=== PATIENT | female | born 1985 | race Caucasian/White ===

== ENCOUNTER 2016-11-08 07:49 | Emergency (ER) | payer OTHER ==
--- NOTE | 2016-11-08 11:29 | DIAGNOSTIC IMAGING REPORT ---
PROCEDURE: CT ABDOMEN/PELVIS W/O CONTRAST INDICATION: Left flank pain. Reported prior appendectomy, section, and tubal ligation. TECHNIQUE: Noncontrast axial images with sagittal and coronal reformations. COMPARISON: Compared to pelvic ultrasound 05/05/2016. FINDINGS: ABDOMEN: There is a 0.5 mm nonobstructing calculus in the lower left kidney. Left kidney and ureter are otherwise normal. Right kidney and ureter are normal. Gallbladder, liver, spleen, pancreas, and aorta are normal. Bowel pattern is normal, there are surgical clips in the right lower abdomen. PELVIS: There is a tubal ligation clips in the right pelvis. Uterus and adnexal structures are otherwise normal. No evidence of free fluid. IMPRESSION: 1. There is a 0.5 mm nonobstructing calculus in the left kidney. 2. No evidence of urinary tract obstruction. 3. Postoperative changes consistent with cholecystectomy and tubal ligation. 4. Findings discussed with Dr. Estevan Loving. All CT scans at this facility use dose modulation, iterative reconstruction, and/or weight-based dosing when appropriate to reduce radiation dose to as low as reasonably achievable.
--- NOTE | 2016-11-08 11:47 | ED ORDER SUMMARY ---
..... Patient: SCARLETT AGUILAR OrderSheet [facility] VisitID: [id number] [place] [address] 31y, F Registration Date/Time: 11/08/2016 ORDER SHEET Weight: 86.1 kg (stated) Allergies: Benadryl, Ibuprofen, morphine, Nitroglycerin, Reglan GENERAL ORDERS: UA-Culture if indicated Urgent (08:44 11/08/2016 Yovana GARCIA) (Ack 8:45 Landy) (8:48 JSanders R.N.) Urine Urgent (08:44 11/08/2016 Yovana GARCIA) (Ack 8:45 Landy) (8:48 JSanders R.N.) CT Abd/Pel wo Cont Urgent (10:04 11/08/2016 Madan Morris) (Ack 10:12 Landy) (10:55 JSanders R.N.) CBC w Diff Urgent (10:05 11/08/2016 Madan Morris) (Ack 10:12 DONISoejonathon) (11:08 JSanders R.N.) CMP Urgent (10:05 11/08/2016 Madan Morris) (Ack 10:12 Landy) (11:08 JSanders R.N.) Lipase Urgent (10:05 11/08/2016 Madan Morris) (Ack 10:12 Landy) (11:08 JSanders R.N.) MEDICATION ORDERS: Toradol IM 30 mg (NOW) (08:19 11/08/2016 Yovana GARCIA) (8:25 JSanders R.N.) Percocet PO 5/325 mg (HIGH ALERT MEDICATION, NOW) (09:26 11/08/2016 Madan Morris) (9:41 JSanders R.N.) IV FLUIDS: IV NS : initial bolus 1000 mL (1000 mL/hr), then none - for X1 (NOW) (10:04 11/08/2016 Madan Morris) (10:36 JSanders R.N.) Morphine IV 4 mg (HIGH ALERT MEDICATION, NOW) (10:39 11/08/2016 Madan Morris) (Cancelled: Duplicate Order11:10 Madan Morris) Dilaudid IV 1 mg (HIGH ALERT MEDICATION, NOW) (11:09 11/08/2016 Madan Morris) (11:32 Cedrick Jimenez) ORDER SHEET NOTES: [Electronically signed by Marlen Herrera R.N. (12:15 11/08/2016)] [Electronically signed by Estevan Loving Dr. (11:52 11/10/2016)] [Electronically locked/signed by Marlen Herrera R.N. (12:15 11/08/2016)]
--- NOTE | 2016-11-08 11:47 | ED ORDER SUMMARY ---
..... Patient: SCARLETT AGUILAR OrderSheet [facility] VisitID: [id number] [place] [address] 31y, F Registration Date/Time: 11/08/2016 ORDER SHEET Weight: 86.1 kg (stated) Allergies: Benadryl, Ibuprofen, morphine, Nitroglycerin, Reglan GENERAL ORDERS: UA-Culture if indicated Urgent (08:44 11/08/2016 Yovana GARCIA) (Ack 8:45 Landy) (8:48 JSanders R.N.) Urine Urgent (08:44 11/08/2016 Yovana GARCIA) (Ack 8:45 Landy) (8:48 JSanders R.N.) CT Abd/Pel wo Cont Urgent (10:04 11/08/2016 Madan Morris) (Ack 10:12 Landy) (10:55 JSanders R.N.) CBC w Diff Urgent (10:05 11/08/2016 Madan Morris) (Ack 10:12 DONISoejonathon) (11:08 JSanders R.N.) CMP Urgent (10:05 11/08/2016 Madan Morris) (Ack 10:12 Landy) (11:08 JSanders R.N.) Lipase Urgent (10:05 11/08/2016 Madan Morris) (Ack 10:12 Landy) (11:08 JSanders R.N.) MEDICATION ORDERS: Toradol IM 30 mg (NOW) (08:19 11/08/2016 Yovana GARCIA) (8:25 JSanders R.N.) Percocet PO 5/325 mg (HIGH ALERT MEDICATION, NOW) (09:26 11/08/2016 Madan Morris) (9:41 JSanders R.N.) IV FLUIDS: IV NS : initial bolus 1000 mL (1000 mL/hr), then none - for X1 (NOW) (10:04 11/08/2016 Madan Morris) (10:36 JSanders R.N.) Morphine IV 4 mg (HIGH ALERT MEDICATION, NOW) (10:39 11/08/2016 Madan Morris) (Cancelled: Duplicate Order11:10 Madan Morris) Dilaudid IV 1 mg (HIGH ALERT MEDICATION, NOW) (11:09 11/08/2016 Madan Morris) (11:32 Cedrick Jimenez) ORDER SHEET NOTES: [Electronically signed by Marlen Herrera R.N. (12:15 11/08/2016)] [Electronically signed by Estevan Loving Dr. (11:52 11/10/2016)] [Electronically locked/signed by Marlen Herrera R.N. (12:15 11/08/2016)]
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
--- NOTE | 2016-11-10 11:52 | ED MAR SUMMARY ---
..... Medication Administration Record [facility] [address] [place] [address] Patient: SCARLETT AGUILAR Visit ID: [id number] 31y, F Weight: 86.1 kg Height/Length: 62 in BMI: 34.8 ALLERGIES: Benadryl, Ibuprofen, morphine, Nitroglycerin, Reglan Given 08:25 11/08/2016 Marlen Herrera R.N. Medication Administered: TORADOL [IM] (KETOROLAC TROMETHAMINE), Dose: 30 mg IM. Medication Ordered: Toradol IM 30 mg (NOW). Given 09:41 11/08/2016 Marlen Herrera R.N. Medication Administered: PERCOCET [PO] (OXYCODONE-ACETAMINOPHEN), Dose: 1 tab 5/325 mg Tablets PO. Medication Ordered: Percocet PO 5/325 mg (HIGH ALERT MEDICATION, NOW). Start 10:36 11/08/2016 Marlen Herrera R.N., Stop 11:32 11/08/2016 Marlen Herrera R.N. Medication Administered: IV NS (SALINE), Dose: IV Fluids over 1 hour(s), Rate: 1000 mL/hr, Bolus: 1000 mL over 1 hour(s), Dispensed: 1000 mL bag, Site: #1 left AC. Medication Ordered: IV NS : initial bolus 1000 mL (1000 mL/hr), then none - for X1 (NOW). Given 11:32 11/08/2016 Marlen Herrera R.N. Medication Administered: DILAUDID [IVP] (HYDROMORPHONE HCL PF), Dose: 1 mg IVP over 2 minute(s), Site: #1 left AC. Medication Ordered: Dilaudid IV 1 mg (HIGH ALERT MEDICATION, NOW).
--- NOTE | 2016-11-10 11:52 | ED MED RECONCILIATION SUMMARY ---
Patient: SCARLETT AGUILAR Medication Reconciliation Report [facility] VisitID: [id number] [address] [place] [address] 31y, F Registration Date/Time: 11/08/2016 Weight: 86.1 kg Height/Length: 62 in. BMI: 34.8 ALLERGIES: Benadryl, Ibuprofen, morphine, Nitroglycerin, Reglan The patient's Home Medications are listed below: NONE. The source(s) of the original Home Medication information: Not obtained. The following Medications were given to the patient in the Emergency Department: Toradol [IM] IM 30 mg, administered: 11/08/2016 8:25:00 AM Percocet [PO] PO 1 tab, administered: 11/08/2016 9:41:00 AM IV NS IV Fluids bolus 1000 mL over 1 hour(s), then 1000 mL/hr, administered: 11/08/2016 10:36:00 AM Dilaudid [IVP] IVP 1 mg, administered: 11/08/2016 11:32:00 AM The following Medications were prescribed to the patient: Zofran (orally disintegrating tablets) 4 mg: take 1 orally every 8 hours as needed for nausea and vomiting. Dispense ten (10). No refill. Substitution is permissible. -- Estevan Loving Dr. Cephalexin 500 mg: take 1 capsule orally every 8 hours for 5 days. No refill. -- Estevan Loving Dr. Percocet 5 mg/325 mg: take 1 tablet orally every 6 hours as needed for pain. Dispense twelve (12). No refill. Substitution is permissible. -- Estevan Loving Dr.
--- NOTE | 2016-11-10 11:52 | ED MAR SUMMARY ---
..... Medication Administration Record [facility] [address] [place] [address] Patient: SCARLETT AGUILAR Visit ID: [id number] 31y, F Weight: 86.1 kg Height/Length: 62 in BMI: 34.8 ALLERGIES: Benadryl, Ibuprofen, morphine, Nitroglycerin, Reglan Given 08:25 11/08/2016 Marlen Herrera R.N. Medication Administered: TORADOL [IM] (KETOROLAC TROMETHAMINE), Dose: 30 mg IM. Medication Ordered: Toradol IM 30 mg (NOW). Given 09:41 11/08/2016 Marlen Herrera R.N. Medication Administered: PERCOCET [PO] (OXYCODONE-ACETAMINOPHEN), Dose: 1 tab 5/325 mg Tablets PO. Medication Ordered: Percocet PO 5/325 mg (HIGH ALERT MEDICATION, NOW). Start 10:36 11/08/2016 Marlen Herrera R.N., Stop 11:32 11/08/2016 Marlen Herrera R.N. Medication Administered: IV NS (SALINE), Dose: IV Fluids over 1 hour(s), Rate: 1000 mL/hr, Bolus: 1000 mL over 1 hour(s), Dispensed: 1000 mL bag, Site: #1 left AC. Medication Ordered: IV NS : initial bolus 1000 mL (1000 mL/hr), then none - for X1 (NOW). Given 11:32 11/08/2016 Marlen Herrera R.N. Medication Administered: DILAUDID [IVP] (HYDROMORPHONE HCL PF), Dose: 1 mg IVP over 2 minute(s), Site: #1 left AC. Medication Ordered: Dilaudid IV 1 mg (HIGH ALERT MEDICATION, NOW).
--- NOTE | 2016-11-10 11:52 | ED DISCHARGE INSTRUCTIONS ---
Patient: SCARLETT AGUILAR General Instructions [facility] VisitID: [id number] [place] [address] 31y, F Registration Date/Time: 11/08/2016 11/08/2016 07:57 BP: 112/73. HR: 80. RR: 18. O2 saturation: 100%. Temp: 98 F. Pain level now: 9/10. Blood pressure normal. Oxygen saturation normal. Left nephrolithiasis (acute). Acute lumbar back pain. (left). INSTRUCTIONS Warnings: GENERAL WARNINGS: Return or contact your physician immediately if your condition worsens or changes unexpectedly, if not improving as expected, or if other problems arise. SPECIFICALLY, return if you develop weakness, numbness, tingling, pain or incontinence. fever or other concerns. Your Current Medications: CONTINUE TAKING THE FOLLOWING MEDICATIONS: None*. Prescription Medications: Zofran (orally disintegrating tablets) 4 mg: take 1 orally every 8 hours as needed for nausea and vomiting. Dispense ten (10). No refill. Substitution is permissible. Cephalexin 500 mg: take 1 capsule orally every 8 hours for 5 days. No refill. Percocet 5 mg/325 mg: take 1 tablet orally every 6 hours as needed for pain. Dispense twelve (12). No refill. Substitution is permissible. Follow-up: Return to the emergency department as needed. Follow up with your doctor in three days. Reason for referral: recheck today's concerns. Summary of care provided to patient via paper. Screening today revealed the patient's blood pressure to be in the normal range. The patient should follow up with a primary care provider for blood pressure management. Understanding of the discharge instructions verbalized by patient. ADDITIONAL INFORMATION Back Pain [Acute Or Chronic] Back pain is usually caused by an injury to the muscles or ligaments of the spine. Sometimes the disks that separate each bone in the spine may bulge and cause pain by pressing on a nearby nerve. Back pain may also appear after a sudden twisting/bending force (such as in a car accident), after a simple awkward movement, or lifting something heavy with poor body positioning. In either case, muscle spasm is often present and adds to the pain. Acute back pain usually gets better in one to two weeks. Back pain related to disk disease, arthritis in the spinal joints or spinal stenosis (narrowing of the spinal canal) can become chronic and last for months or years. Unless you had a physical injury (for example, a car accident or fall) X-rays are usually not ordered for the initial evaluation of back pain. If pain continues and does not respond to medical treatment, x-rays and other tests may be performed at a later time. Home Care: You may need to stay in bed the first few days. But, as soon as possible, begin sitting or walking to avoid problems with prolonged bed rest (muscle weakness, worsening back stiffness and pain, blood clots in the legs). When in bed, try to find a position of comfort. A firm mattress is best. Try lying flat on your back with pillows under your knees. You can also try lying on your side with your knees bent up towards your chest and a pillow between your knees. Avoid prolonged sitting. This puts more stress on the lower back than standing or walking. During the first two days after injury, apply an ICE PACK to the painful area for 20 minutes every 2-4 hours. This will reduce swelling and pain. HEAT (hot shower, hot bath or heating pad) works well for muscle spasm. You can start with ice, then switch to heat after two days. Some patients feel best alternating ice and heat treatments. Use the one method that feels the best to you. You may use acetaminophen (Tylenol) or ibuprofen (Motrin, Advil) to control pain, unless another pain medicine was prescribed. [NOTE: If you have chronic liver or kidney disease or ever had a stomach ulcer or GI bleeding, talk with your doctor before using these medicines.] Be aware of safe lifting methods and do not lift anything over 15 pounds until all the pain is gone. Follow Up with your doctor or this facility if your symptoms do not start to improve after one week. Physical therapy may be needed. [NOTE: If X-rays were taken, they will be reviewed by a radiologist. You will be notified of any new findings that may affect your care.] Get Prompt Medical Attention if any of the following occur: Pain becomes worse or spreads to your legs Weakness or numbness in one or both legs Loss of bowel or bladder control Numbness in the groin or genital area Kidney Stone (W/ Colic) The sharp cramping pain and nausea/vomiting that you have is due to a small stone which has formed in the kidney and is now passing down a narrow tube (ureter) on its way to your bladder. Once it reaches your bladder, the pain will stop. The stone may pass in your urine stream in one piece. [The size may be 1/16" to 1/4" (1-6mm)]. Or, the stone may also break up into floyd fragments which you may not even notice. Once you have had a kidney stone, you are at risk for developing another one in the future. Home Care: Drink plenty of fluids (at least 8 to 10 glasses of water a day). Most stones will pass on their own, but may take from a few hours to a few days. Sometimes the stone is too large to pass by itself and special methods will have to be used to remove the stone. Each time you urinate, do so in a jar. Pour the urine from the jar through the strainer and into the toilet. Continue doing this until 24 hours after your pain stops. By then, if there was a kidney stone, it should pass from your bladder. Some stones dissolve into sand-like particles and pass right through the strainer. In that case, you wont ever see a stone. Save any stone that you find in the strainer and bring it to your doctor for analysis. It may be possible to prevent certain types of stones from forming. Therefore, it is important to know what kind of stone you have. Try to stay as active as possible since this will help the stone pass. Do not stay in bed unless your pain prevents you from getting up. You may notice a red, pink or brown color to your urine. This is normal while passing a kidney stone. Follow Up with your doctor or return to this facility if the pain lasts more than 48 hours. Get Prompt Medical Attention if any of the following occur: Pain that is not controlled by the medicine given Repeated vomiting or unable to keep down fluids Weakness, dizziness or fainting Fever of 100.4F (38C) or higher, or as directed by your healthcare provider Passage of solid red or brown urine (can't see through it) or urine with lots of blood clots Unable to pass urine for 8 hours and increasing bladder pressure Ondansetron Oral disintegrating tablet What is this medicine? ONDANSETRON (on NAVEED se anne) is used to treat nausea and vomiting caused by chemotherapy. It is also used to prevent or treat nausea and vomiting after surgery. How should I use this medicine? These tablets are made to dissolve in the mouth. Do not try to push the tablet through the foil backing. With dry hands, peel away the foil backing and gently remove the tablet. Place the tablet in the mouth and allow it to dissolve, then swallow. While you may take these tablets with water, it is not necessary to do so. Talk to your carcass washer regarding the use of this medicine in children. Special care may be needed. What side effects may I notice from receiving this medicine? Side effects that you should report to your doctor or health customer care voice consultant as soon as possible: allergic reactions like skin rash, itching or hives, swelling of the face, lips, or tongue breathing problems dizziness fast or irregular heartbeat feeling faint or lightheaded, falls fever and chills swelling of the hands and feet tightness in the chest Side effects that usually do not require medical attention (report to your doctor or health customer care voice consultant if they continue or are bothersome): constipation or diarrhea headache What may interact with this medicine? Do not take this medicine with any of the following medications: -apomorphine -cisapride -dofetilide -dronedarone -pimozide -thioridazine -ziprasidone This medicine may also interact with the following medications: -carbamazepine -phenytoin -rifampicin -tramadol -other medicines that prolong the QT interval (cause an abnormal heart rhythm) What if I miss a dose? If you miss a dose, take it as soon as you can. If it is almost time for your next dose, take only that dose. Do not take double or extra doses. Where should I keep my medicine? Keep out of the reach of children. Store between 2 and 30 degrees C (36 and 86 degrees F). Throw away any unused medicine after the expiration date. What should I tell my health care provider before I take this medicine? They need to know if you have any of these conditions: heart disease history of irregular heartbeat liver disease low levels of magnesium or potassium in the blood an unusual or allergic reaction to ondansetron, granisetron, other medicines, foods, dyes, or preservatives or trying to get breast-feeding What should I watch for while using this medicine? Check with your doctor or health customer care voice consultant as soon as you can if you have any sign of an allergic reaction. Cephalexin Monohydrate Oral tablet What is this medicine? CEPHALEXIN (sef a PAULO in) is a cephalosporin antibiotic. It is used to treat certain kinds of bacterial infections It will not work for colds, flu, or other viral infections. How should I use this medicine? Take this medicine by mouth with a full glass of water. Follow the directions on the prescription label. This medicine can be taken with or without food. Take your medicine at regular intervals. Do not take your medicine more often than directed. Take all of your medicine as directed even if you think you are better. Do not skip doses or stop your medicine early. Talk to your carcass washer regarding the use of this medicine in children. While this drug may be prescribed for selected conditions, precautions do apply. What side effects may I notice from receiving this medicine? Side effects that you should report to your doctor or health customer care voice consultant as soon as possible: allergic reactions like skin rash, itching or hives, swelling of the face, lips, or tongue breathing problems pain or trouble passing urine redness, blistering, peeling or loosening of the skin, including inside the mouth severe or watery diarrhea unusually weak or tired yellowing of the eyes, skin Side effects that usually do not require medical attention (report to your doctor or health customer care voice consultant if they continue or are bothersome): gas or heartburn genital or anal irritation headache joint or muscle pain nausea, vomiting What may interact with this medicine? probenecid some other antibiotics What if I miss a dose? If you miss a dose, take it as soon as you can. If it is almost time for your next dose, take only that dose. Do not take double or extra doses. There should be at least 4 to 6 hours between doses. Where should I keep my medicine? Keep out of the reach of children. Store at room temperature between 59 and 86 degrees F (15 and 30 degrees C). Throw away any unused medicine after the expiration date. What should I tell my health care provider before I take this medicine? They need to know if you have any of these conditions: kidney disease stomach or intestine problems, especially colitis an unusual or allergic reaction to cephalexin, other cephalosporins, penicillins, other antibiotics, medicines, foods, dyes or preservatives or trying to get breast-feeding What should I watch for while using this medicine? Tell your doctor or health customer care voice consultant if your symptoms do not begin to improve in a few days. Do not treat diarrhea with over the counter products. Contact your doctor if you have diarrhea that lasts more than 2 days or if it is severe and watery. If you have diabetes, you may get a false-positive result for sugar in your urine. Check with your doctor or health customer care voice consultant. Oxycodone Hydrochloride, Acetaminophen Oral tablet What is this medicine? ACETAMINOPHEN; OXYCODONE (a set a FREDI devyn fen; ox i KOE done) is a pain reliever. It is used to treat mild to moderate pain. How should I use this medicine? Take this medicine by mouth with a full glass of water. Follow the directions on the prescription label. Take your medicine at regular intervals. Do not take your medicine more often than directed. Talk to your carcass washer regarding the use of this medicine in children. Special care may be needed. Patients over 65 years old may have a stronger reaction and need a smaller dose. What side effects may I notice from receiving this medicine? Side effects that you should report to your doctor or health customer care voice consultant as soon as possible: allergic reactions like skin rash, itching or hives, swelling of the face, lips, or tongue breathing difficulties, wheezing confusion light headedness or fainting spells severe stomach pain yellowing of the skin or the whites of the eyes Side effects that usually do not require medical attention (report to your doctor or health customer care voice consultant if they continue or are bothersome): dizziness drowsiness nausea vomiting What may interact with this medicine? alcohol antihistamines barbiturates like amobarbital, butalbital, butabarbital, methohexital, pentobarbital, phenobarbital, thiopental, and secobarbital benztropine drugs for bladder problems like solifenacin, trospium, oxybutynin, tolterodine, hyoscyamine, and methscopolamine drugs for breathing problems like ipratropium and tiotropium drugs for certain stomach or intestine problems like propantheline, homatropine methylbromide, glycopyrrolate, atropine, belladonna, and dicyclomine general anesthetics like etomidate, ketamine, nitrous oxide, propofol, desflurane, enflurane, halothane, isoflurane, and sevoflurane medicines for depression, anxiety, or psychotic disturbances medicines for sleep muscle relaxants naltrexone narcotic medicines (opiates) for pain phenothiazines like perphenazine, thioridazine, chlorpromazine, mesoridazine, fluphenazine, prochlorperazine, promazine, and trifluoperazine scopolamine tramadol trihexyphenidyl What if I miss a dose? If you miss a dose, take it as soon as you can. If it is almost time for your next dose, take only that dose. Do not take double or extra doses. Where should I keep my medicine? Keep out of the reach of children. This medicine can be abused. Keep your medicine in a safe place to protect it from theft. Do not share this medicine with anyone. Selling or giving away this medicine is dangerous and against the law. Store at room temperature between 20 and 25 degrees C (68 and 77 degrees F). Keep container tightly closed. Protect from light. This medicine may cause accidental overdose and if it is taken by other adults, children, or pets. Flush any unused medicine down the toilet to reduce the chance of harm. Do not use the medicine after the expiration date. What should I tell my health care provider before I take this medicine? They need to know if you have any of these conditions: brain tumor Crohn's disease, inflammatory bowel disease, or ulcerative colitis drink more than 3 alcohol containing drinks per day drug abuse or addiction head injury heart or circulation problems kidney disease or problems going to the bathroom liver disease lung disease, asthma, or breathing problems an unusual or allergic reaction to acetaminophen, oxycodone, other opioid analgesics, other medicines, foods, dyes, or preservatives or trying to get breast-feeding What should I watch for while using this medicine? Tell your doctor or health customer care voice consultant if your pain does not go away, if it gets worse, or if you have new or a different type of pain. You may develop tolerance to the medicine. Tolerance means that you will need a higher dose of the medication for pain relief. Tolerance is normal and is expected if you take this medicine for a long time. Do not suddenly stop taking your medicine because you may develop a severe reaction. Your body becomes used to the medicine. This does NOT mean you are addicted. Addiction is a behavior related to getting and using a drug for a non-medical reason. If you have pain, you have a medical reason to take pain medicine. Your doctor will tell you how much medicine to take. If your doctor wants you to stop the medicine, the dose will be slowly lowered over time to avoid any side effects. You may get drowsy or dizzy. Do not drive, use machinery, or do anything that needs mental alertness until you know how this medicine affects you. Do not stand or sit up quickly, especially if you are an older patient. This reduces the risk of dizzy or fainting spells. Alcohol may interfere with the effect of this medicine. Avoid alcoholic drinks. There are different types of narcotic medicines (opiates) for pain. If you take more than one type at the same time, you may have more side effects. Give your health care provider a list of all medicines you use. Your doctor will tell you how much medicine to take. Do not take more medicine than directed. Call emergency for help if you have problems breathing. The medicine will cause constipation. Try to have a bowel movement at least every 2 to 3 days. If you do not have a bowel movement for 3 days, call your doctor or health customer care voice consultant. Do not take Tylenol (acetaminophen) or medicines that have acetaminophen with this medicine. Too much acetaminophen can be very dangerous. Many nonprescription medicines contain acetaminophen. Always read the labels carefully to avoid taking more acetaminophen. You have been given the following additional information: Back Pain (Acute Or Chronic) Kidney Stone W/ Colic Ondansetron Oral disintegrating tablet Cephalexin Monohydrate Oral tablet Oxycodone Hydrochloride, Acetaminophen Oral tablet (Electronically signed by Estevan Loving Dr. 11/10/2016 11:52)
--- NOTE | 2016-11-10 11:52 | ED MED RECONCILIATION SUMMARY ---
Patient: SCARLETT AGUILAR Medication Reconciliation Report [facility] VisitID: [id number] [address] [place] [address] 31y, F Registration Date/Time: 11/08/2016 Weight: 86.1 kg Height/Length: 62 in. BMI: 34.8 ALLERGIES: Benadryl, Ibuprofen, morphine, Nitroglycerin, Reglan The patient's Home Medications are listed below: NONE. The source(s) of the original Home Medication information: Not obtained. The following Medications were given to the patient in the Emergency Department: Toradol [IM] IM 30 mg, administered: 11/08/2016 8:25:00 AM Percocet [PO] PO 1 tab, administered: 11/08/2016 9:41:00 AM IV NS IV Fluids bolus 1000 mL over 1 hour(s), then 1000 mL/hr, administered: 11/08/2016 10:36:00 AM Dilaudid [IVP] IVP 1 mg, administered: 11/08/2016 11:32:00 AM The following Medications were prescribed to the patient: Zofran (orally disintegrating tablets) 4 mg: take 1 orally every 8 hours as needed for nausea and vomiting. Dispense ten (10). No refill. Substitution is permissible. -- Estevan Loving Dr. Cephalexin 500 mg: take 1 capsule orally every 8 hours for 5 days. No refill. -- Estevan Loving Dr. Percocet 5 mg/325 mg: take 1 tablet orally every 6 hours as needed for pain. Dispense twelve (12). No refill. Substitution is permissible. -- Estevan Loving Dr.
== END 2016-11-08 12:15 | disposition home or self-care (01) ==
LOC: ED SRH 07:49
DX: N20.0 Calculus of kidney (principal); M54.5 Low back pain; Z86.73 Personal history of transient ischemic attack (TIA), and cerebral infarction without residual deficits; Z88.8 Allergy status to other drugs, medicaments and biological substances; Z88.5 Allergy status to narcotic agent; Z79.1 Long term (current) use of non-steroidal anti-inflammatories (NSAID)
CPT/HCPCS: 90004; 90100; 92235; 93070; 95059

== ENCOUNTER 2016-12-07 10:41 | Emergency (ER) | payer OTHER ==
--- NOTE | 2016-12-07 13:23 | DIAGNOSTIC IMAGING REPORT ---
PROCEDURE: MR BRAIN W/WO CONTRAST INDICATION: HEADACHE TECHNIQUE: Multiplanar multisequence MRI imaging of the brain without contrast. Post administration of 15 ml ProHance gadolinium based IV contrast, three plane T1 fat sat sequences were obtained. COMPARISON: None. FINDINGS: There is a fluid in the sphenoid sinus on the left. The ventricular system is normal in size. Basal cisterns are patent. Flow voids in the major intracranial vessels are normal. No vascular malformations seen post contrast. Signal throughout the otero and white matter is normal. No restricted diffusion to suggest acute ischemia. No evidence of acute or chronic intraparenchymal or extra-axial hemorrhage. No mass, mass effect, or midline shift. No suspicious enhancement. Normal signal in the visible bones. The sinuses are normally aerated. Visible extracranial soft tissues including the orbits are normal. IMPRESSION: 1. Fluid in the sphenoid sinus 2. Otherwise normal MRI of the brain.
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
--- NOTE | 2016-12-07 17:46 | ED ORDER SUMMARY ---
..... Patient: SCARLETT AGUILAR OrderSheet [facility] VisitID: [id number] [place] [address] 31y, F Registration Date/Time: 12/07/2016 ORDER SHEET Weight: 81.6 kg (stated) Allergies: Benadryl, morphine, Nitroglycerin, Reglan GENERAL ORDERS: CBC w Diff Urgent (11:36 12/07/2016 Marce GARCIA) (Ack 11:40 LNations ER Tech1) (11:54 JBoardley R.N.) CMP Urgent (11:36 12/07/2016 Marce GARCIA) (Ack 11:40 LNations ER Tech1) (11:54 JBoardley R.N.) UA-Culture if indicated Urgent (11:36 12/07/2016 Marce GARCIA) (Ack 11:40 LNations ER Tech1) (11:54 JBoardley R.N.) Amylase Urgent (11:36 12/07/2016 Marce GARCIA) (Ack 11:40 LNations ER Tech1) (11:54 JBoardley R.N.) Lipase Urgent (11:36 12/07/2016 Marce GARCIA) (Ack 11:40 LNations ER Tech1) (11:54 JBoardley R.N.) MRI Brain w/wo IACS w/wo Cont (Not Applicable) Urgent (11:41 12/07/2016 Marce GARCIA) (Ack 11:54 PWeiler ER Tech1) (13:04 PWeiler ER Tech1) CSF, Cell Count Urgent (15:38 12/07/2016 Marce GARCIA) (16:05 Mray ER Tech1) CSF, Culture Urgent (15:38 12/07/2016 Marce GARCIA) (16:05 YEEeiestrada ER Tech1) CSF, Glucose Urgent (15:38 12/07/2016 Marce GARCIA) (16:05 YEEeiestrada ER Tech1) CSF, Protein Urgent (15:38 12/07/2016 Marce GARCIA) (16:05 PWeiler ER Tech1) MEDICATION ORDERS: IV FLUIDS: IV NS : initial bolus 500 mL (1000 mL/hr), then 125 mL/hr for 4h (NOW); Urgent (11:36 12/07/2016 Marce GARCIA) (Ack 11:37 JBoardley R.N.) (11:55 JBoardley R.N.) Dilaudid IV 0.5 mg (HIGH ALERT MEDICATION, NOW) (11:36 12/07/2016 Marce GARCIA) (Ack 11:37 JBoardley R.N.) (11:56 JBoardley R.N.) Zofran IV 4 mg (NOW) (11:36 12/07/2016 Marce GARCIA) (Ack 11:37 JBoardley R.N.) (11:56 JBoardley R.N.) Dilaudid IV 0.5 mg (HIGH ALERT MEDICATION, NOW) (11:56 12/07/2016 JBoardley R.N. verbal order read back to Marce GARCIA) (11:56 JBoardley R.N.) Dilaudid IV 0.5 mg (HIGH ALERT MEDICATION, NOW) (14:11 12/07/2016 JBoardley R.N. verbal order read back to Marce GARCIA) (14:11 JBoardley R.N.) IV NS : initial bolus 50 mL (1000 mL/hr), then 250 mL/hr for X1 (NOW); Routine (15:43 12/07/2016 JBoardley R.N. verbal order read back to Marce GARCIA) (Cancelled: Other15:44 JBoardley R.N.) IV NS : initial bolus none -, then 250 mL/hr for X1 (NOW); Routine (15:44 12/07/2016 JBoardley R.N. verbal order read back to Marce GARCIA) (15:45 JBoardley R.N.) Dilaudid IV 0.5 mg (HIGH ALERT MEDICATION, NOW) (18:54 12/07/2016 JBoardley R.N. verbal order read back to Marce GARCIA) (18:55 JBoardley R.N.) ORDER SHEET NOTES: [Electronically signed by Matias Jane R.N. (19:03 12/07/2016)] [Electronically signed by Chadd Kruse MD (19:52 12/07/2016)] [Electronically locked/signed by Matias Jane R.N. (19:03 12/07/2016)]
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
--- NOTE | 2016-12-07 17:46 | ED ORDER SUMMARY ---
..... Patient: SCARLETT AGUILAR OrderSheet [facility] VisitID: [id number] [place] [address] 31y, F Registration Date/Time: 12/07/2016 ORDER SHEET Weight: 81.6 kg (stated) Allergies: Benadryl, morphine, Nitroglycerin, Reglan GENERAL ORDERS: CBC w Diff Urgent (11:36 12/07/2016 Marce GARCIA) (Ack 11:40 LNations ER Tech1) (11:54 JBoardley R.N.) CMP Urgent (11:36 12/07/2016 Marce GARCIA) (Ack 11:40 LNations ER Tech1) (11:54 JBoardley R.N.) UA-Culture if indicated Urgent (11:36 12/07/2016 Marce GARCIA) (Ack 11:40 LNations ER Tech1) (11:54 JBoardley R.N.) Amylase Urgent (11:36 12/07/2016 Marce GARCIA) (Ack 11:40 LNations ER Tech1) (11:54 JBoardley R.N.) Lipase Urgent (11:36 12/07/2016 Marce GARCIA) (Ack 11:40 LNations ER Tech1) (11:54 JBoardley R.N.) MRI Brain w/wo IACS w/wo Cont (Not Applicable) Urgent (11:41 12/07/2016 Marce GARCIA) (Ack 11:54 PWeiler ER Tech1) (13:04 PWeiler ER Tech1) CSF, Cell Count Urgent (15:38 12/07/2016 Marce GARCIA) (16:05 Mary ER Tech1) CSF, Culture Urgent (15:38 12/07/2016 Marce GARCIA) (16:05 YEEeiestrada ER Tech1) CSF, Glucose Urgent (15:38 12/07/2016 Marce GARCIA) (16:05 YEEeiestrada ER Tech1) CSF, Protein Urgent (15:38 12/07/2016 Marce GARCIA) (16:05 PWeiler ER Tech1) MEDICATION ORDERS: IV FLUIDS: IV NS : initial bolus 500 mL (1000 mL/hr), then 125 mL/hr for 4h (NOW); Urgent (11:36 12/07/2016 Marce GARCIA) (Ack 11:37 JBoardley R.N.) (11:55 JBoardley R.N.) Dilaudid IV 0.5 mg (HIGH ALERT MEDICATION, NOW) (11:36 12/07/2016 Marce GARCIA) (Ack 11:37 JBoardley R.N.) (11:56 JBoardley R.N.) Zofran IV 4 mg (NOW) (11:36 12/07/2016 Marce GARCIA) (Ack 11:37 JBoardley R.N.) (11:56 JBoardley R.N.) Dilaudid IV 0.5 mg (HIGH ALERT MEDICATION, NOW) (11:56 12/07/2016 JBoardley R.N. verbal order read back to Marce GARCIA) (11:56 JBoardley R.N.) Dilaudid IV 0.5 mg (HIGH ALERT MEDICATION, NOW) (14:11 12/07/2016 JBoardley R.N. verbal order read back to Marce GARCIA) (14:11 JBoardley R.N.) IV NS : initial bolus 50 mL (1000 mL/hr), then 250 mL/hr for X1 (NOW); Routine (15:43 12/07/2016 JBoardley R.N. verbal order read back to Marce GARCIA) (Cancelled: Other15:44 JBoardley R.N.) IV NS : initial bolus none -, then 250 mL/hr for X1 (NOW); Routine (15:44 12/07/2016 JBoardley R.N. verbal order read back to Marce GARCIA) (15:45 JBoardley R.N.) Dilaudid IV 0.5 mg (HIGH ALERT MEDICATION, NOW) (18:54 12/07/2016 JBoardley R.N. verbal order read back to Marce GARCIA) (18:55 JBoardley R.N.) ORDER SHEET NOTES: [Electronically signed by Matias Jane R.N. (19:03 12/07/2016)] [Electronically signed by Chadd Kruse MD (19:52 12/07/2016)] [Electronically locked/signed by Matias Jane R.N. (19:03 12/07/2016)]
--- NOTE | 2016-12-07 19:52 | ED DISCHARGE INSTRUCTIONS ---
Patient: SCARLETT AGUILAR General Instructions [facility] VisitID: [id number] [address] [place] [address] 31y, F Registration Date/Time: 12/07/2016 Headache. Sinusitis. (Electronically signed by Chadd Kruse MD 12/07/2016 19:52)
--- NOTE | 2016-12-07 19:52 | ED DISCHARGE INSTRUCTIONS ---
Patient: SCARLETT AGUILAR General Instructions [facility] VisitID: [id number] [address] [place] [address] 31y, F Registration Date/Time: 12/07/2016 Headache. Sinusitis. (Electronically signed by Chadd Kruse MD 12/07/2016 19:52)
--- NOTE | 2016-12-07 19:52 | ED MED RECONCILIATION SUMMARY ---
Patient: SCARLETT AGUILAR Medication Reconciliation Report [facility] VisitID: [id number] [address] [place] [address] 31y, F Registration Date/Time: 12/07/2016 Weight: 81.6 kg Height/Length: 63 in. BMI: 31.9 ALLERGIES: Benadryl, morphine, Nitroglycerin, Reglan The patient's Home Medications are listed below: NONE. The source(s) of the original Home Medication information: patient The following Medications were given to the patient in the Emergency Department: IV NS IV Fluids bolus 0, then 1000 mL/hr, administered: 12/07/2016 11:45:00 AM Dilaudid [IVP] IVP 0.5 mg, administered: 12/07/2016 11:50:00 AM Zofran [IVP] IVP 4 mg, administered: 12/07/2016 11:56:00 AM Dilaudid [IVP] IVP 0.5 mg, administered: 12/07/2016 11:46:00 AM Dilaudid [IVP] IVP 0.5 mg, administered: 12/07/2016 2:11:00 PM IV NS IV Fluids bolus 0, then 250 mL/hr, administered: 12/07/2016 3:35:00 PM Dilaudid [IVP] IVP 0.5 mg, administered: 12/07/2016 6:30:00 PM The following Medications were prescribed to the patient: None.
--- NOTE | 2016-12-07 19:52 | ED MAR SUMMARY ---
..... Medication Administration Record [facility] [address] [place] [address] Patient: SCARLETT AGUILAR Visit ID: [id number] 31y, F Weight: 81.6 kg Height/Length: 63 in BMI: 31.9 ALLERGIES: Benadryl, morphine, Nitroglycerin, Reglan Start 11:45 12/07/2016 Matias Jane R.N., Stop 13:45 12/07/2016 Matias Jane R.N. Medication Administered: IV NS (SALINE), Dose: IV Fluids over 1 hour(s), Rate: 1000 mL/hr, Dispensed: 1000 mL bag, Site: #1 right AC. Medication Ordered: IV NS : initial bolus 500 mL (1000 mL/hr), then 125 mL/hr for 4h (NOW); Urgent. Given 11:46 12/07/2016 Matias Jane R.N. Medication Administered: DILAUDID [IVP] (HYDROMORPHONE HCL PF), Dose: 0.5 mg IVP over 2 minute(s), Site: #1 right AC. Medication Ordered: Dilaudid IV 0.5 mg (HIGH ALERT MEDICATION, NOW). Given 11:50 12/07/2016 Matias Jane R.N. Medication Administered: DILAUDID [IVP] (HYDROMORPHONE HCL PF), Dose: 0.5 mg IVP over 2 minute(s), Site: #1 right AC. Medication Ordered: Dilaudid IV 0.5 mg (HIGH ALERT MEDICATION, NOW). Given 11:56 12/07/2016 Matias Jane R.N. Medication Administered: ZOFRAN [IVP] (ONDANSETRON HCL), Dose: 4 mg IVP over 2 minute(s), Site: #1 right AC. Medication Ordered: Zofran IV 4 mg (NOW). Given 14:11 12/07/2016 Matias Jane R.N. Medication Administered: DILAUDID [IVP] (HYDROMORPHONE HCL PF), Dose: 0.5 mg IVP over 2 minute(s), Site: #1 right AC. Medication Ordered: Dilaudid IV 0.5 mg (HIGH ALERT MEDICATION, NOW). Start 15:35 12/07/2016 Mtaias Jane R.N., Stop 18:54 12/07/2016 Matias Jane R.N. Medication Administered: IV NS (SALINE), Dose: IV Fluids over 4 hour(s), Rate: 250 mL/hr, Dispensed: 1000 mL bag, Site: #1 right AC. Medication Ordered: IV NS : initial bolus none -, then 250 mL/hr for X1 (NOW); Routine. Given 18:30 12/07/2016 Matias Jane R.N. Medication Administered: DILAUDID [IVP] (HYDROMORPHONE HCL PF), Dose: 0.5 mg IVP over 2 minute(s), Site: #1 right AC. Medication Ordered: Dilaudid IV 0.5 mg (HIGH ALERT MEDICATION, NOW).
--- NOTE | 2016-12-07 19:52 | ED MED RECONCILIATION SUMMARY ---
Patient: SCARLETT AGUILAR Medication Reconciliation Report VisitID: [id number] [address] [place] [address] 31y, F Registration Date/Time: 12/07/2016 Weight: 81.6 kg Height/Length: 63 in. BMI: 31.9 ALLERGIES: Benadryl, morphine, Nitroglycerin, Reglan The patient's Home Medications are listed below: NONE. The source(s) of the original Home Medication information: patient The following Medications were given to the patient in the Emergency Department: IV NS IV Fluids bolus 0, then 1000 mL/hr, administered: 12/07/2016 11:45:00 AM Dilaudid [IVP] IVP 0.5 mg, administered: 12/07/2016 11:50:00 AM Zofran [IVP] IVP 4 mg, administered: 12/07/2016 11:56:00 AM Dilaudid [IVP] IVP 0.5 mg, administered: 12/07/2016 11:46:00 AM Dilaudid [IVP] IVP 0.5 mg, administered: 12/07/2016 2:11:00 PM IV NS IV Fluids bolus 0, then 250 mL/hr, administered: 12/07/2016 3:35:00 PM Dilaudid [IVP] IVP 0.5 mg, administered: 12/07/2016 6:30:00 PM The following Medications were prescribed to the patient: None.
--- NOTE | 2016-12-07 19:52 | ED MAR SUMMARY ---
..... Medication Administration Record [facility] [address] [place] [address] Patient: SCARLETT AGUILAR Visit ID: [id number] 31y, F Weight: 81.6 kg Height/Length: 63 in BMI: 31.9 ALLERGIES: Benadryl, morphine, Nitroglycerin, Reglan Start 11:45 12/07/2016 Matias Jane R.N., Stop 13:45 12/07/2016 Matias Jane R.N. Medication Administered: IV NS (SALINE), Dose: IV Fluids over 1 hour(s), Rate: 1000 mL/hr, Dispensed: 1000 mL bag, Site: #1 right AC. Medication Ordered: IV NS : initial bolus 500 mL (1000 mL/hr), then 125 mL/hr for 4h (NOW); Urgent. Given 11:46 12/07/2016 Matias Jane R.N. Medication Administered: DILAUDID [IVP] (HYDROMORPHONE HCL PF), Dose: 0.5 mg IVP over 2 minute(s), Site: #1 right AC. Medication Ordered: Dilaudid IV 0.5 mg (HIGH ALERT MEDICATION, NOW). Given 11:50 12/07/2016 Matias Jane R.N. Medication Administered: DILAUDID [IVP] (HYDROMORPHONE HCL PF), Dose: 0.5 mg IVP over 2 minute(s), Site: #1 right AC. Medication Ordered: Dilaudid IV 0.5 mg (HIGH ALERT MEDICATION, NOW). Given 11:56 12/07/2016 Matias Jane R.N. Medication Administered: ZOFRAN [IVP] (ONDANSETRON HCL), Dose: 4 mg IVP over 2 minute(s), Site: #1 right AC. Medication Ordered: Zofran IV 4 mg (NOW). Given 14:11 12/07/2016 Matais Jane R.N. Medication Administered: DILAUDID [IVP] (HYDROMORPHONE HCL PF), Dose: 0.5 mg IVP over 2 minute(s), Site: #1 right AC. Medication Ordered: Dilaudid IV 0.5 mg (HIGH ALERT MEDICATION, NOW). Start 15:35 12/07/2016 Matias Jane R.N., Stop 18:54 12/07/2016 Matias Jane R.N. Medication Administered: IV NS (SALINE), Dose: IV Fluids over 4 hour(s), Rate: 250 mL/hr, Dispensed: 1000 mL bag, Site: #1 right AC. Medication Ordered: IV NS : initial bolus none -, then 250 mL/hr for X1 (NOW); Routine. Given 18:30 12/07/2016 Matias Jane R.N. Medication Administered: DILAUDID [IVP] (HYDROMORPHONE HCL PF), Dose: 0.5 mg IVP over 2 minute(s), Site: #1 right AC. Medication Ordered: Dilaudid IV 0.5 mg (HIGH ALERT MEDICATION, NOW).
== END 2016-12-07 19:02 | disposition home or self-care (01) ==
LOC: ED SRH 10:41
DX: R51 Headache (principal); J32.9 Chronic sinusitis, unspecified; F17.219 Nicotine dependence, cigarettes, with unspecified nicotine-induced disorders; Z88.8 Allergy status to other drugs, medicaments and biological substances; Z88.5 Allergy status to narcotic agent
CPT/HCPCS: 81344; 90004; 90100; 90134; 90309; 92070; 92235; 92530; 92653; 95030; 95059